=== PATIENT | male | born 1930 | race Caucasian/White ===

== ENCOUNTER 2017-05-22 07:04 | Day surgery (SDC) | payer MEDICARE, BC ==
[~2017-05-22] VITALS: Ht 177.8 cm; Wt 81.8 kg
[2017-05-22] VITALS (7 sets, daily range): BP systolic 98–134; BP diastolic 62–93; PULSE 51–88; TEMP 97.3
[2017-05-22] MEDS ORDERED: CARDURA 8MG TAB8 MG PO (07:31)
[2017-05-22] MEDS ORDERED: PROSCAR 5MG5 MG PO (07:31)
[2017-05-22] MEDS ORDERED: COUMADIN 22.5 MG/TAB PO (07:32)
[2017-05-22] MEDS ORDERED: ASPIRIN E.C. 8181 MG PO (07:32)
[2017-05-22] MEDS ORDERED: CORDARONE200 MG/TAB PO (07:33)
[2017-05-22 07:38] LABS: HEMATOCRIT 42.7 % (42.0-52.0); HEMOGLOBIN 13.7 g/dl (13.5-18.0); MEAN CELL VOLUME 93 fl (80.0-100.0); MEAN CORPUSCULAR HEMOGLOBIN 30 pg (27.0-31.0); MEAN CORPUSCULAR HGB CONC 32 g/dl (33.0-37.0); MEAN PLATELET VOLUME 9.4 fl (7.4-10.4); PLATELET COUNT 222 K/mm3 (130-400); RED BLOOD COUNT 4.57 M/mm3 (4.20-5.60); REDCELL DISTRIBUTION WIDTH-CV 14.9 % (11.5-14.5)
[2017-05-22 07:43] LABS: INR 2.2 (0.8-3.0); PROTHROMBIN TIME 26.2 SECONDS (9.7-12.8)
[2017-05-22 07:50] LABS: CALCIUM 9.3 mg/dL (8.4-10.2); CREATININE, serum 1.31 mg/dL (0.66-1.25); POTASSIUM 4.8 mmol/L (3.4-5.0)
== END 2017-05-22 12:32 | disposition home or self-care (01) ==
LOC: COL.CAR 07:04
PROVIDERS: Internal Medicine Cardiovascular Disease
DX: I48.0 Paroxysmal atrial fibrillation (principal); R01.1 Cardiac murmur, unspecified; I34.0 Nonrheumatic mitral (valve) insufficiency; Z79.82 Long term (current) use of aspirin; Z88.6 Allergy status to analgesic agent; N40.0 Benign prostatic hyperplasia without lower urinary tract symptoms; J30.9 Allergic rhinitis, unspecified; Z82.49 Family history of ischemic heart disease and other diseases of the circulatory system; Z82.3 Family history of stroke
CPT/HCPCS: J2704

== ENCOUNTER 2017-08-07 06:48 | Day surgery (SDC) | payer MEDICARE, BC ==
[~2017-08-07] VITALS: Ht 177.8 cm; Wt 80.7 kg
[~2017-08-07 06:48] MED LIST: ASPIRIN E.C. 8181 MG PO; CARDURA 8MG TAB8 MG PO; CORDARONE200 MG/TAB PO; COUMADIN 22.5 MG/TAB PO; PROSCAR 5MG5 MG PO
[2017-08-07 07:16] VITALS: PULSE 107; TEMP 97.8
[2017-08-07 07:30] LABS: HEMATOCRIT 42.1 % (42.0-52.0); HEMOGLOBIN 13.9 g/dl (13.5-18.0); MEAN CELL VOLUME 94 fl (80.0-100.0); MEAN CORPUSCULAR HEMOGLOBIN 31 pg (27.0-31.0); MEAN CORPUSCULAR HGB CONC 33 g/dl (33.0-37.0); MEAN PLATELET VOLUME 8.9 fl (7.4-10.4); PLATELET COUNT 203 K/mm3 (130-400); REDCELL DISTRIBUTION WIDTH-CV 15.4 % (11.5-14.5)
[2017-08-07 07:39] LABS: INR 2.7 (0.8-3.0); PROTHROMBIN TIME 30.6 SECONDS (9.7-12.8)
[2017-08-07 07:46] LABS: CREATININE, serum 1.22 mg/dL (0.66-1.25); POTASSIUM 4.4 mmol/L (3.4-5.0)
[2017-08-07 09:15] VITALS: BP 127/77; PULSE 49
[2017-08-07] MEDS ORDERED: CORDARONE200 MG/TAB PO (09:18)
[2017-08-07 09:30] VITALS: BP 136/81; PULSE 49
[2017-08-07 09:45] VITALS: BP 136/81; PULSE 52; TEMP 97.8
[2017-08-07 10:05] VITALS: BP 131/74; PULSE 50; TEMP 97.7
[2017-08-07 10:20] VITALS: BP 142/84; PULSE 53; TEMP 97.7
== END 2017-08-07 11:01 | disposition home or self-care (01) ==
LOC: COL.CAR 06:48
PROVIDERS: Internal Medicine Cardiovascular Disease
DX: I48.0 Paroxysmal atrial fibrillation (principal); Z79.01 Long term (current) use of anticoagulants; Z79.82 Long term (current) use of aspirin; I38 Endocarditis, valve unspecified; I05.2 Rheumatic mitral stenosis with insufficiency; Z79.899 Other long term (current) drug therapy; I49.5 Sick sinus syndrome
CPT/HCPCS: J2704; J7120

== ENCOUNTER 2018-02-15 14:06 | Inpatient (IN) | payer MEDICARE, BC ==
[~2018-02-15] VITALS: Ht 177.8 cm; Wt 77.5 kg
[2018-04-03] VITALS (11 sets, daily range): BP systolic 136–183; BP diastolic 47–76; PULSE 46–79; TEMP 97.2–98
[2018-04-03] MEDS ORDERED: COUMADIN 5MG5 MG/TAB PO (00:27)
[2018-04-03] MEDS ORDERED: COUMADIN 2MG2 MG/TAB PO ×3 (00:28→05:29)
[2018-04-03] MEDS ORDERED: FERROUS GL325 MG/TAB PO (00:30)
[2018-04-03] MEDS ORDERED: FOLIC ACID 11 MG/TA1 PO (00:30)
[2018-04-03] MEDS ORDERED: VITAMIN C500 MG PO (05:31)
--- NOTE | 2018-04-03 06:24 | NUR ---
Patient prepared for surgery with no incidents. Admission B and assessment completed. Med-rec and allergies reviewed and updated. INT started to right forearm. Son at bedside. Patient sent down to surgery at this time with New.
[2018-04-03 07:37] LABS: INR 1.2 (0.8-3.0); PROTHROMBIN TIME 13.1 SECONDS (9.7-12.8)
--- NOTE | 2018-04-03 11:57 | NUR ---
PT TO ROOM 328 PER BED WITH DANUTA TITLE ATTORNEY REPORTING @1140 PT IS DROWSEY BUT AROUSES TO VERBAL, LUNGS CLEAR, BOWEL SOUNDS PRESENT. DRESSING TO RLE CDI, TEDS AND SCDS PLACED BILATERALLY. POLAR PACK INPLACE OVER AQUACEL. PT'S SON AT BEDSIDE.
--- NOTE | 2018-04-03 14:42 | NUR ---
LITO and SW student met with patient and his son to discuss discharge planning. Patient lives in [place] independently and wants to go to [place] [facility] at discharge. Choice form obtained and placed on chart. Patients PCP is Dr Delbert Wilburn and he obtains his medications at [facility]. LITO called Viji at [facility] and faxed referral. LITO will continue to follow.
--- NOTE | 2018-04-03 15:06 | NUR ---
DR RIGGS IN TO ROUND ON PATEINT. PT DOING WELL NO NEW ORDERS.
--- NOTE | 2018-04-03 19:55 | NUR ---
Assessment completed. Patient is A&O x 4. VSS, currently on 3 liters of supplemental O2 via nasal cannula per orders. Pain controlled at this time with alternating Clinton/Doreen. Aquacell dressing to right knee is CDI with cryocuff maintained to right knee. Pedal pulses intact. BLE north hose/scds on. Encouraged ankle pumps while laying in bed. Tolerating diet with no c/o nausea. Matias catheter to DD with yellow clear urine draining. IVF infusing with intermittent antibiotic per orders. Will ambulate this evening in the hallway after pain medication has taken affect. Denies any concerns or needs at this time. Bed is in a low position with call light in reach.
--- NOTE | 2018-04-03 22:10 | NUR ---
Patient up with assist x 1 with walker and gait belt, gait steady. Ambulated approximately 100 feet in the hallway this evening with staff.
[2018-04-04 00:57] VITALS: BP 132/87; PULSE 83; TEMP 97.7
--- NOTE | 2018-04-04 03:21 | NUR ---
Patient is resting with eyes closed and even respirations, does not appear to be in any distress. Bed remains in a low position with call light in reach.
[2018-04-04 04:51] VITALS: BP 120/59; PULSE 51; TEMP 98.8
--- NOTE | 2018-04-04 06:13 | NUR ---
Patient has rested well through the night. Pain has been controlled with current oral medication, denies any pain at this time. Aquacell dressing to right knee is CDI with cryocuff maintained to knee. Matias catheter remains to DD with yellow clear urine draining. IVF to INT this morning after last dose of antibiotic was given. Denies any concerns or needs at this time, call light is within reach.
[2018-04-04 06:18] LABS: HEMOGLOBIN 12.3 g/dl (13.5-18.0)
[2018-04-04 06:25] LABS: HEMATOCRIT 36.8 % (42.0-52.0)
--- NOTE | 2018-04-04 07:06 | NUR ---
REPORT FROM REBECCA CASTELLANO.
[2018-04-04 07:24] LABS: INR 1.2 (0.8-3.0); PROTHROMBIN TIME 13.6 SECONDS (9.7-12.8)
[2018-04-04 07:34] VITALS: BP 137/66; PULSE 55; TEMP 97
--- NOTE | 2018-04-04 08:37 | NUR ---
PT UP IN BED FOR BREAKFAST. OUT TO [facility] FOR THERAPY, THEN RETURNED TO [facility]. SEE DAY ONE ORDERS.
--- NOTE | 2018-04-04 10:11 | NUR ---
[place] CATHETER DISCONTINUED PER ORDERS, TIP INTACT PT TOLERATED WELL.
--- NOTE | 2018-04-04 11:08 | NUR ---
LITO faxed update to [facility].
[2018-04-04 11:47] VITALS: BP 123/53; PULSE 55; TEMP 97.5
--- NOTE | 2018-04-04 13:08 | NUR ---
Initial visit; Patient thanked Patient Financial Advocate for stopping by to visit and for offering God's blessings.
[2018-04-04 15:56] VITALS: BP 139/63; PULSE 62; TEMP 97.6
--- NOTE | 2018-04-04 19:23 | NUR ---
Patient sitting up in the chair at bedside called out c/o nausea, had a large emesis after eating supper this evening. Reports he was nauseous earlier today and that it had gone away, prn IV Zofran given.
--- NOTE | 2018-04-04 20:00 | NUR ---
Patient in chair resting; Alert and oriented x 3. Shift assessment complete. Aquacell dressing to right knee CDI. Ministerio hose and SCDs to BLE. Cryocuff to right knee. Pedal pulses intact. Patient ambulated <100 feet with stand by assist and walker. Denies further needs at this time.
[2018-04-04 20:10] VITALS: BP 119/50; PULSE 78; TEMP 98.4
--- NOTE | 2018-04-04 20:59 | NUR ---
Assessment completed. Patient is A&O x 4. VSS, on room air. Reports minimal pain at this time, denies wanting to take any pain medication. Aquacell dressing to right knee is CDI with cryocuff maintained to knee. Pedal pulses intact. BLE north hose/scds on. Encouraged ankle pumps. Patient did have a large emesis after eating supper this evening, prn IV Zofran given. Reports mild nausea at this time was able to tolerate crackers and evening pills. Voiding with no difficulities. Up with assist x 1 with walker and gait belt, gait is steady. Ambulated approximately 50 feet this evening. INT to right forearm. Denies any concerns or needs at this time, call light is within reach.
[2018-04-05] VITALS (7 sets, daily range): BP systolic 96–134; BP diastolic 46–87; PULSE 57–89; TEMP 97.6–973.8
--- NOTE | 2018-04-05 05:32 | NUR ---
Patient reports nausea has subsided, reports he feels he needs to take something to help him have a bowel movement but wants to eat breakfast before he does. VSS. Reports minimal pain to right knee. Aquacell dressing to right knee remains CDI with cryocuff maintained to knee. Up with assist x 1 with walker and gait belt, gait remains steady. Patient is currently sitting up in the chair at this time. Denies any concerns or needs, call light within reach.
[2018-04-05] MEDS ORDERED: ROXICODONE 55 MG/TAB PO (09:31)
[2018-04-05] MEDS ORDERED: NORCO 325 MG-7.1 TAB PO (09:31)
[2018-04-05] MEDS ORDERED: TYLENOL 500MG500 MG PO (09:32)
[2018-04-05] MEDS ORDERED: ZANTAC 150MG T150 MG PO (09:32)
--- NOTE | 2018-04-05 15:05 | NUR ---
LITO talked with Viji at [facility]. Dr Dugan doc to doc number is [phone]. The nurse to nurse number is [phone]. LITO faxed update.
[2018-04-06 00:26] VITALS: BP 151/62; PULSE 69; TEMP 98.1
[2018-04-06 04:48] VITALS: BP 132/70; PULSE 69; TEMP 98.7
--- NOTE | 2018-04-06 05:48 | NUR ---
Patient has rested well through the night. Minimal needs. Denies pain at this time. Cryocuff maintained to right knee. Denies further needs at this time. will report off to day shift.
[2018-04-06 06:29] LABS: BASO % 0.2 % (0.0-2.0); EOS # 0.1 (0.0-0.7); EOS % 0.4 % (0-4.0); GRAN # 10.7 (1.4-6.5); GRAN % 82.9 % (42.2-75.2); HEMOGLOBIN 10.9 g/dl (13.5-18.0); LYMPH # 0.6 (1.2-3.4); LYMPH % 4.9 % (20.0-51.0); MEAN CELL VOLUME 94 fl (80.0-100.0); MEAN CORPUSCULAR HEMOGLOBIN 32 pg (27.0-31.0); MEAN CORPUSCULAR HGB CONC 34 g/dl (33.0-37.0); MEAN PLATELET VOLUME 10.4 fl (7.4-10.4); MONO # 1.4 (0.1-0.6); MONO % 10.9 % (1.7-9.3); PLATELET COUNT 176 K/mm3 (130-400); RED BLOOD COUNT 3.42 M/mm3 (4.20-5.60); REDCELL DISTRIBUTION WIDTH-CV 14.5 % (11.5-14.5)
[2018-04-06 06:32] LABS: HEMATOCRIT 32.3 % (42.0-52.0)
--- NOTE | 2018-04-06 06:45 | NUR ---
sitting up in chair, bedside shift report received from binu RN, Chiara, PRESSFITTER in to see patient
--- NOTE | 2018-04-06 08:00 | NUR ---
sitting up in chair after having had breakfast, full assessment completed, see interventions for further info, requesting pain pills,
--- NOTE | 2018-04-06 08:15 | NUR ---
medicated with hydrocodone 7.5mg 2 tabs by student RN
[2018-04-06 08:22] VITALS: BP 130/55; PULSE 63; TEMP 98.1
[2018-04-06 08:51] VITALS: BP 130/55; PULSE 63; TEMP 98.1
--- NOTE | 2018-04-06 09:12 | NUR ---
LITO met with patient to present IM and verbally discussed the contents. Patient was agreeable and signed the form. He denied a copy and original was placed in the chart. LITO called Viji at [facility] who confirmed they can accept today and have a bed for him. Patient called his son who is on his way to get him. LITO faxed discharge. Patient is dc to [facility] for half-way. His son will transport. No other dc needs.
--- NOTE | 2018-04-06 10:32 | NUR ---
discharged per to [facility]
== END 2018-04-06 10:32 | disposition swing bed (61) | DRG 470 ==
LOC: JCC 04-03 05:02
PROVIDERS: ADMIT Orthopaedic Surgery
PROC: 0SRC0J9 Replacement of Right Knee Joint with Synthetic Substitute, Cemented, Open Approach (ICD-10-PCS; principal; 2018-04-03 07:30)
DX: M17.11 Unilateral primary osteoarthritis, right knee (principal); Z85.828 Personal history of other malignant neoplasm of skin; I10 Essential (primary) hypertension
CPT/HCPCS: A4314; A9284; C1713; C1776; J0690; J2250; J2405; J2704; J7120

== ENCOUNTER → 2018-03-27 | Outpatient (CLI) | payer MEDICARE, BC ==
[2018-03-27 18:02] LABS: HIV 1/2 Antibodies Non-Reactive; HIV-1p24 Antigen Non-Reactive
== END ==
LOC: COL.LAB 16:55
PROVIDERS: Orthopaedic Surgery
DX: Z01.812 Encounter for preprocedural laboratory examination (principal)